=== PATIENT | female | born 1995 | race Caucasian/White ===

== ENCOUNTER 2024-01-07 20:30 | Emergency (ER) | payer OTHER, SELFPAY ==
[2024-01-07 20:34] VITALS: BP 140/95; PULSE 65; RESP 18; TEMP 36.6; O2SAT 100; BMI 23.1
[2024-01-07 20:35] VITALS: BP 140/95
[2024-01-07 20:36] VITALS: O2SAT 100
--- NOTE | 2024-01-07 20:39 | ED.NAVMDI1 ---
HPI - Nausea/Vomiting/Diarrhea General Chief complaint: Nausea/Vomiting/Diarrhea Stated complaint: Nausea Vomiting Time Seen by Provider: 01/07/24 20:34 Source: patient Mode of arrival: walk-in History of Present Illness HPI Narrative: history of GERD. vomiting and diarrhea last PM and increased GERD symptoms. Took Mylanta and it did not help as it usually does. Today continues with vomiting and diarrhea. also has pain left apex of her chest and epigastric area. no hematemesis. States home preg test 3 days ago was neg. No fever or dyspnea. Is currently nauseated Related Data Home Medications Medication Instructions Recorded Confirmed omeprazole 40 mg capsule,delayed 40 mg PO DAILY 01/07/24 01/07/24 release prazosin 1 mg capsule 1 mg PO DAILY 01/07/24 01/07/24 quetiapine 100 mg tablet 100 mg PO DAILY 01/07/24 01/07/24 sotalol 80 mg tablet 80 mg PO DAILY 01/07/24 01/07/24 Allergies Allergy/AdvReac Type Severity Reaction Status Date / Time aspirin Allergy Severe Verified 01/07/24 20:38 Sulfa (Sulfonamide Allergy Severe Verified 01/07/24 20:38 Antibiotics) Review of Systems ROS Status of ROS 10 or more systems reviewed and unremarkable except as noted in history and below [facility] Medical History (Updated 01/08/24 @ 00:48 by Eyad Silva MD) 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 - Other bipolar disorder (ICD-10) SVT (supraventricular tachycardia) ?I47.10 - Supraventricular tachycardia, unspecified (ICD-10) Gilbert syndrome ?E80.4 - Gilbert syndrome (ICD-10) Exam Constitutional Vital Signs, click to edit/add: Last Vital Signs Temp 97.9 F 01/07/24 20:34 Pulse 53 L 01/07/24 20:42 Resp 13 01/07/24 20:42 BP 113/71 01/07/24 22:18 Pulse Ox 100 01/07/24 20:36 O2 Del Method Room Air 01/07/24 20:34 Common normals: no apparent distress, average body habitus, oriented x3, no limitations, healthy appearing, alert and well nourished [facility] Common normals: normocephalic and head/scalp atraumatic Eye Common normals: PERRL, EOMs intact bilaterally, conjunctivae normal and no scleral icterus Chest Other: left chest wall tenderness reproduces symptoms Respiratory Common normals: normal respiratory effort, no retractions, no use of accessory muscles and clear to auscultation bilaterally GI Common normals: Normal to inspection, nondistended, normoactive bowel sounds present and soft to palpation Other: mod epigastric tenderness Extremity Common normals: normal to inspection and full ROM Neuro Common normals: oriented x3, CN's II-XII intact bilaterally, moves all extremities and no focal motor deficits Psych Appearance: grossly normal Course Vital Signs Vital signs: Vital Signs Temperature 97.9 F 01/07/24 20:34 Pulse Rate 65 01/07/24 20:34 Respiratory Rate 18 01/07/24 20:34 Blood Pressure 140/95 H 01/07/24 20:34 Pulse Oximetry 100 01/07/24 20:34 Oxygen Delivery Method Room Air 01/07/24 20:34 Temperature 97.9 F 01/07/24 20:34 Pulse Rate 53 L 01/07/24 20:42 Respiratory Rate 13 01/07/24 20:42 Blood Pressure 113/71 01/07/24 22:18 Pulse Oximetry 100 01/07/24 20:36 Oxygen Delivery Method Room Air 01/07/24 20:34 MDM - Nausea/Vomiting/Diarrhea MDM Narrative Medical decision making narrative: patient presents with presentation of viral gastroenteritis manifested by recurrent vomiting and diarrhea. Tonight increased epigastric pain. Known history of GERD. On exam she is found to have epigastric tenderness without guarding. Her symptoms resolved with GI cocktail and phenergan. She has history of Gilbert's syndrome. Labs with mildly elevated T. bili but also mild elevated alk phos and LFTs. CT with findings of prior cholecystectomy and new mild extrahepatic bile dilatation. bile duct dilatation could be related to past cholecystectomy . Patient re examined and remains pain free. Patient discharged and informed of the findings. also informed that is symptoms recur she may need ERCP or MRCP. 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 States she will follow up with her GI doctor. Discharged home with a prescription for phenergan Lab Data Labs: Lab Results 01/07/24 01/07/24 Range/Units 20:45 21:18 WBC 12.5 H (4.0-11.0) 10^3/uL RBC 5.20 (4.20-5.40) 10^6/uL Hgb 14.9 (12.0-16.0) g/dL Hct 45.3 (36.0-48.0) % MCV 87.1 (81.0-99.0) fL MCH 28.7 (26.7-34.0) pg MCHC 32.9 (29.9-35.2) g/dL RDW 12.5 (11.0-15.0) % Plt Count 475 H (150-450) 10^3/uL MPV 9.8 (9.5-13.5) fL Neut % (Auto) 50.6 (43.0-75.0) % Lymph % (Auto) 39.2 (20.5-60.0) % [place] % (Auto) 8.0 (1.7-12.0) % Eos % (Auto) 1.1 (0.9-7.0) % Baso % (Auto) 0.8 (0.2-2.0) % Neut # (Auto) 6.3 (1.4-6.5) 10^3/uL Lymph # (Auto) 4.9 H (1.2-3.8) 10^3/uL [place] # (Auto) 1.0 H (0.3-0.8) 10^3/uL Eos # (Auto) 0.1 (0.0-0.7) 10^3/uL Baso # (Auto) 0.1 (0.0-0.1) 10^3/uL Abs Immat Gran (auto) 0.04 H (0.00-0.03) 10^3/uL Imm/Tot Granulo (auto) 0.3 (0.0-0.5) % Sodium 142 (136-145) mmol/L Potassium 3.9 (3.5-5.1) mmol/L Chloride 107 (98-107) mmol/L Carbon Dioxide 24.0 (21.0-32.0) mmol/L Anion Gap 14.9 BUN 8.0 (7.0-18.0) mg/dL Creatinine 0.91 (0.55-1.02) mg/dL Est GFR ( Amer) >60 (>=60) Est GFR (Non-Af Amer) >60 (>=60) BUN/Creatinine Ratio 8.8 Glucose 100 (74-106) mg/dL Lactate 1.4 (0.4-2.0) mmol/L Calcium 9.1 (8.5-10.1) mg/dL Total Bilirubin 1.7 H (0.2-1.0) mg/dL AST 142 H (15-37) U/L ALT 134 H (14-59) U/L Alkaline Phosphatase 155 H (46-116) U/L Troponin I High Sens 43.7 (4.0-51.3) pg/mL Total Protein 8.1 (6.4-8.2) g/dL Albumin 3.6 (3.4-5.0) g/dL Globulin 4.5 g/dL Albumin/Globulin Ratio 0.8 Lipase 25.0 (16.0-77.0) U/L Urine Color Lt. yellow (YELLOW) Urine Clarity Clear (CLEAR) Urine pH >=9.0 A (5.0-9.0) Ur Specific [place] 1.015 (1.005-1.025) Urine Protein Negative (NEG/TRACE) mg/dL Urine Glucose (UA) Negative (NEGATIVE) mg/dL Urine Ketones Negative (NEGATIVE) mg/dL Urine Occult Blood Small A (NEGATIVE) Urine Nitrite Negative (NEGATIVE) Urine Bilirubin Negative (NEGATIVE) Urine Urobilinogen 0.2 (0.2-1.0) EU/dL Ur Leukocyte Esterase Small A (NEGATIVE) Urine RBC 2-5 A (0-2) #/HPF Urine WBC 2-5 A (NONE SEEN) #/HPF Ur Squamous Epith Cells Few A (NONE/RARE) #/LPF Urine Crystals None seen (None Seen) #/HPF Urine Bacteria Trace A (NONE SEEN) #/HPF Urine Casts None seen (NONE SEEN) #/LPF Urine Mucus Trace A (NONE SEEN) Urine HCG, Qual Negative (NEGATIVE) Imaging Data Chest x-ray: Radiologist's impression: ITS Impressions Abdomen/Pelvis CT 01/07/24 22:41 IMPRESSION: 1. Prior cholecystectomy again noted with new mild extrahepatic biliary ductal dilatation. This may be due to remote cholecystectomy. If clinical or laboratory findings suggest biliary obstruction, further evaluation with MRCP or ERCP could be considered. 2. No acute findings in the abdomen or pelvis to explain epigastric pain. 3. Nonspecific mild focal dilatation of the left common iliac vein just distal to the right common iliac artery. May-Thurner syndrome cannot be excluded. Clinical correlation recommended. No associated deep venous thrombosis is seen. Electronically authenticated by: RASHIDA MANJARREZ Date: 01/07/2024 23:53 Discharge Plan Discharge Chief Complaint: Nausea/Vomiting/Diarrhea Clinical Impression: Gastroenteritis, GERD (gastroesophageal reflux disease) Patient Disposition: Home, Self-Care Prescriptions / Home Meds: No Action omeprazole 40 mg capsule,delayed release(DR/EC) 40 mg PO DAILY prazosin 1 mg capsule 1 mg PO DAILY sotalol 80 mg tablet 80 mg PO DAILY quetiapine 100 mg tablet 100 mg PO DAILY Instructions: Gastroenteritis (ED), GERD (Gastroesophageal Reflux Disease) (ED) Additional Instructions: follow up with your doctor in a couple of days for recheck Stand Alone Forms: Portal Instructions Referrals: Physician,Non-Staff, MD [Physician] - 1 week
[2024-01-07 20:40] VITALS: PULSE 70; RESP 6
--- NOTE | 2024-01-07 20:41 | ECG_ITS ---
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
[2024-01-07 20:42] VITALS: PULSE 53; RESP 13
[2024-01-07 20:58] LABS: Basophils Absolute Auto 0.1 10^3/uL (0.0-0.1); Basophils Percent Auto 0.8 % (0.2-2.0); Eosinophils Absolute Auto 0.1 10^3/uL (0.0-0.7); Eosinophils Percent Auto 1.1 % (0.9-7.0); Hematocrit 45.3 % (36.0-48.0); Hemoglobin 14.9 g/dL (12.0-16.0); Immature Granulocytes Abs Auto 0.04 10^3/uL (0.00-0.03); Immature Granulocytes Pct Auto 0.3 % (0.0-0.5); Lymphocytes Absolute Auto 4.9 10^3/uL (1.2-3.8); Lymphocytes Percent Auto 39.2 % (20.5-60.0); Mean Corpuscular HGB Conc 32.9 g/dL (29.9-35.2); Mean Corpuscular Hemoglobin 28.7 pg (26.7-34.0); Mean Corpuscular Volume 87.1 fL (81.0-99.0); Mean Platelet Volume 9.8 fL (9.5-13.5); Neutrophils Absolute Auto 6.3 10^3/uL (1.4-6.5); Neutrophils Percent Auto 50.6 % (43.0-75.0); Platelet Count 475 10^3/uL (150-450); Red Cell Distribution Width 12.5 % (11.0-15.0); White Blood Count 12.5 10^3/uL (4.0-11.0)
[2024-01-07] MEDS: 0.9 % SODIUM CHLORIDE 1,000 ML 999 ML IV ×2 (21:08)
[2024-01-07] MEDS: PROMETHAZINE HCL 12.5 MG in 0.9 % SODIUM CHLORIDE 50 ML 204 MG IV (21:08)
[2024-01-07] MEDS: PANTOPRAZOLE SODIUM 40 MG VIAL IV (21:08)
[2024-01-07 21:15] LABS: Lactate/Lactic Acid 1.4 mmol/L (0.4-2.0)
[2024-01-07 21:21] LABS: Troponin I High Sensitivity 43.7 pg/mL (4.0-51.3)
[2024-01-07 21:22] LABS: Alanine Aminotransferase 134 U/L (14-59); Albumin Globulin Ratio 0.8; Albumin Level 3.6 g/dL (3.4-5.0); Alkaline Phosphatase 155 U/L (46-116); Anion Gap 14.9; Aspartate Amino Transferase 142 U/L (15-37); BUN Creatinine Ratio 8.8; Bilirubin Total 1.7 mg/dL (0.2-1.0); Calcium 9.1 mg/dL (8.5-10.1); Chloride 107 mmol/L (98-107); Estimated GFR (African America >60 (>=60); Estimated GFR (Non-African Ame >60 (>=60); Globulin 4.5 g/dL; Glucose 100 mg/dL (74-106); Potassium 3.9 mmol/L (3.5-5.1); Sodium 142 mmol/L (136-145); Total Protein 8.1 g/dL (6.4-8.2)
[2024-01-07 21:32] LABS: Bilirubin Urine NEGATIVE (NEGATIVE); Blood Urine SMALL (NEGATIVE); Clarity Urine CLEAR (CLEAR); Color Urine LT. YELLOW (YELLOW); Glucose Urine UA NEGATIVE (NEGATIVE); Ketones Urine NEGATIVE (NEGATIVE); Leukocyte Esterase Urine SMALL (NEGATIVE); Nitrite Urine NEGATIVE (NEGATIVE); Protein Urine NEGATIVE (NEG/TRACE); Specific Gravity Urine 1.015 (1.005-1.025); Urobilinogen Urine 0.2 EU/dL (0.2-1.0); pH Urine >=9.0 (5.0-9.0)
[2024-01-07 21:34] LABS: Urine Microscopic Indicated YES
[2024-01-07 21:35] LABS: HCG Qualitative Urine* NEGATIVE (NEGATIVE)
[2024-01-07] MEDS: lidocaine HCL 15 ML, MAG HYDROX/ALUMINUM HYD/SIMETH 30 ML, HYOSCYAMINE SULFATE 0.25 MG PO (21:53)
[2024-01-07 22:04] LABS: Bacteria Urine TRACE #/HPF (NONE SEEN); Crystals Seen? None Seen #/HPF (None Seen); Mucus Urine TRACE (NONE SEEN); Squamous Epithelial Cell Urine FEW #/LPF (NONE/RARE)
[2024-01-07 22:05] LABS: Cast Seen? NONE SEEN #/LPF (NONE SEEN)
[2024-01-07 22:18] VITALS: BP 113/71
--- NOTE | 2024-01-07 22:41 | CT_ITS ---
The [address] [address] Patient Name: MATHEUS LAW MRN: [id number] date: 1995 Sex: F Assigned Patient Location: ER Current Patient Location: ER Accession/Order Number: [id number] Exam Date: 01/07/2024 22:57 Report Date: 01/07/2024 23:53 At the request of: TATIANNA HINTON Procedure: CT abdomen pelvis w con EXAM: CT abdomen pelvis w con HISTORY: epigastric pain COMPARISON: CT abdomen pelvis, 08/02/2016. TECHNIQUE: IV contrast enhanced CT imaging the abdomen and pelvis was performed using 100 mL of Omnipaque 300 intravenous contrast. Sagittal and coronal reconstructions are provided. Dose reduction techniques were achieved by using automated exposure control and/or adjustment of mA and/or kV according to patient size and/or use of iterative reconstruction technique. FINDINGS: CT ABDOMEN: The lung bases are clear. The imaged heart is unremarkable. Prior cholecystectomy is again noted with new dilatation of the common bile duct measuring 12 mm on image 36 of series 3. The liver, pancreas, spleen, adrenal glands, kidneys, aorta, IVC, stomach and small bowel appear unremarkable. CT PELVIS: There is short segment narrowing of the proximal left common iliac vein posterior to the proximal right common iliac artery, with focal dilatation of the left iliac vein just distal to this level, measuring 1.7 cm on image 77 of series 3. May-Thurner syndrome cannot be excluded. There is no associated deep venous thrombosis. A normal appendix is seen on images 92-1 02. The pelvic small bowel loops, colon, urinary bladder, uterus and ovaries are unremarkable. No inflammatory fat stranding, free fluid, loculated fluid or free air is seen in the abdomen or pelvis. No acute osseous abnormality or suspicious bony lesion is seen. CT/CT abdomen pelvis w con IMPRESSION: 1. Prior cholecystectomy again noted with new mild extrahepatic biliary ductal dilatation. This may be due to remote cholecystectomy. If clinical or laboratory findings suggest biliary obstruction, further evaluation with MRCP or ERCP could be considered. 2. No acute findings in the abdomen or pelvis to explain epigastric pain. 3. Nonspecific mild focal dilatation of the left common iliac vein just distal to the right common iliac artery. May-Thurner syndrome cannot be excluded. Clinical correlation recommended. No associated deep venous thrombosis is seen. Electronically authenticated by: RASHIDA MANJARREZ Date: 01/07/2024 23:53
[2024-01-08] MEDS: PROMETHAZINE HCL 12.5 MG in 0.9 % SODIUM CHLORIDE 50 ML 204 MG IV (01:03)
[2024-01-08 01:28] VITALS: BP 121/74; PULSE 65; RESP 16; O2SAT 99
== END 2024-01-08 01:30 | disposition home or self-care (01) ==
PROVIDERS: Emergency Provider Internal Medicine; PCP Family Medicine
DX: K52.9 Noninfective gastroenteritis and colitis, unspecified (principal); K21.9 Gastro-esophageal reflux disease without esophagitis; F31.89 Other bipolar disorder; E80.4 Gilbert syndrome; I47.10 Supraventricular tachycardia, unspecified; Z90.49 Acquired absence of other specified parts of digestive tract
CPT/HCPCS: 36415; 74177; 80053; 81001; 83605; 83690; 84484; 84703; 85025; 93005; 96361; 96365; 96375; 99285; J2250; Q9967

== ENCOUNTER 2024-08-05 13:31 | Emergency (ER) | payer OTHER, SELFPAY ==
[2024-08-05 13:36] VITALS: BP 118/78; PULSE 77; TEMP 36.6; O2SAT 100; BMI 22.5
--- NOTE | 2024-08-05 13:40 | XR_ITS ---
The [address] [address] Patient Name: MATHEUS LAW MRN: [id number] date: 1995 Sex: F Assigned Patient Location: ER Current Patient Location: ER Accession/Order Number: [id number] Exam Date: 08/05/2024 13:45 Report Date: 08/05/2024 14:15 At the request of: BRIT MCKEON Procedure: XR ankle RT min 3V PROCEDURE: XR ankle RT min 3V COMPARISON: None. HISTORY: Injury FINDINGS: BONES:No fracture, acute abnormality, or significant arthropathy. SOFT TISSUES:Negative. No visible soft tissue swelling. EFFUSION:None visible. OTHER: Negative. XR/XR ankle RT min 3V IMPRESSION: No acute radiographic abnormality Electronically authenticated by: ALESSANDRO RUBIN Date: 08/05/2024 14:15
--- NOTE | 2024-08-05 13:40 | ED.GENADUL1 ---
HPI HPI - General Adult General Chief complaint: Extremity Injury, Lower Stated complaint: LOWER EXTREMITY INJURY Time Seen by Provider: 08/05/24 13:35 Source: patient Mode of arrival: Wheelchair Limitations: no limitations History of Present Illness HPI narrative: Patient is a 29-year-old female who arrives to the emergency department for evaluation of right ankle pain after an injury at home. She states she misjudged a step in her home and twisted her right ankle by inverting. She is 27 weeks . She denies any other associated falls or injuries. She has no pain to the right lower leg or knee. No medications taken prior to arrival. She is able to ambulate but reports difficulty doing so. Related Data Home Medications ?Medication ?Instructions ?Recorded ?Confirmed omeprazole 40 mg capsule,delayed 40 mg PO DAILY 01/07/24 01/07/24 release prazosin 1 mg capsule 1 mg PO DAILY 01/07/24 01/07/24 quetiapine 100 mg tablet 100 mg PO DAILY 01/07/24 01/07/24 sotalol 80 mg tablet 80 mg PO DAILY 01/07/24 01/07/24 Allergies Allergy/AdvReac Type Severity Reaction Status Date / Time aspirin Allergy Severe Hives Verified 08/05/24 13:36 Sulfa (Sulfonamide AdvReac Severe Vomiting Verified 08/05/24 13:36 Antibiotics) Opioid HPI Opioid Management Most Recent Opioid Data: No Data to Display Review of Systems ROS Constitutional Denies: fever or chills Ears, nose, mouth, and throat Denies: throat pain or nasal congestion Respiratory Denies: shortness of breath Gastrointestinal Denies: nausea or vomiting Genitourinary Denies: pelvic pain Hematologic/Lymphatic Denies: easy bruising or easy bleeding PFSH PFS Medical History (Updated 08/05/24 @ 14:25 by VANNESA Marrero) 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 No significant swelling. 2+ right DP pulse. No bony tenderness of the right fifth metatarsal. Normal flexion and extension of the toes of the right foot. Psych: Normal mood and affect Neuro: No focal neuro deficit Skin: Warm, dry, intact Constitutional Vital Signs, click to edit/add: Last Vital Signs Temp 97.9 F 08/05/24 13:36 Pulse 77 08/05/24 13:36 Resp 16 08/05/24 13:36 BP 118/78 08/05/24 13:36 Pulse Ox 100 08/05/24 13:36 O2 Del Method Room Air 08/05/24 13:36 Course Vital Signs Vital signs: Vital Signs Temperature 97.9 F 08/05/24 13:36 Pulse Rate 77 08/05/24 13:36 Respiratory Rate 16 08/05/24 13:36 Blood Pressure 118/78 08/05/24 13:36 Pulse Oximetry 100 08/05/24 13:36 Oxygen Delivery Method Room Air 08/05/24 13:36 Temperature 97.9 F 08/05/24 13:36 Pulse Rate 77 08/05/24 13:36 Respiratory Rate 16 08/05/24 13:36 Blood Pressure 118/78 08/05/24 13:36 Pulse Oximetry 100 08/05/24 13:36 Oxygen Delivery Method Room Air 08/05/24 13:36 Medical Decision Making MDM Narrative Medical decision making narrative: X-rays with no evidence of acute process. Patient placed in an Kai wrap and Aircast. She has crutches at home. She is neurovascularly intact pre and post hardware application. Patient declined Tylenol. Ice was applied in the ER. She is encouraged to rest, ice, elevate and use Tylenol as needed. Return to the ER if symptoms change or worsen. SUPERVISED APC VISIT, PHYSICIAN ATTESTATION: Based on the medical record the care appears appropriate. ? Medical Records Medical records reviewed: Yes I reviewed the patient's medical records Imaging Data xr ankle: Attestation: I have reviewed the pertinent imaging results. Radiologist's impression: ITS Impressions Ankle X-Ray 08/05/24 13:40 IMPRESSION: No acute radiographic abnormality Electronically authenticated by: ALESSANDRO RUBIN Date: 08/05/2024 14:15 Discharge Plan Discharge Chief Complaint: Extremity Injury, Lower Clinical Impression: Right ankle sprain Patient Disposition: Home, Self-Care Time of Disposition Decision: 14:25 Condition: Good Prescriptions / Home Meds: No Action omeprazole 40 mg capsule,delayed release(DR/EC) 40 mg PO DAILY prazosin 1 mg capsule 1 mg PO DAILY sotalol 80 mg tablet 80 mg PO DAILY quetiapine 100 mg tablet 100 mg PO DAILY Print Language: Frisian Instructions: Ankle Sprain (ED) Referrals: MANDI ROY [Primary Care Provider] - 1 week Discharge Date/Time: 08/05/24 14:55
== END 2024-08-05 14:55 | disposition home or self-care (01) ==
PROVIDERS: Emergency Provider Emergency Medicine; PCP Family Medicine
DX: O9A.212 Injury, poisoning and certain other consequences of external causes complicating pregnancy, second trimester (principal); S93.401A Sprain of unspecified ligament of right ankle, initial encounter; Z3A.27 27 weeks gestation of pregnancy; X50.1XXA Overexertion from prolonged static or awkward postures, initial encounter
CPT/HCPCS: 73610; 99283

== ENCOUNTER 2024-08-20 09:02 | Outpatient (OUT) | payer OTHER, SELFPAY ==
[2024-08-20 10:30] LABS: Hematocrit 35.8 % (36.0-48.0); Hemoglobin 11.8 g/dL (12.0-16.0)
[2024-08-20 10:45] LABS: Glucose 1 Hour 119 mg/dL (<130)
== END 2024-08-20 09:03 | disposition home or self-care (01) ==
LOC: LAB 09:03
PROVIDERS: PCP Family Medicine; Visit Provider Obstetrics & Gynecology
DX: Z13.1 Encounter for screening for diabetes mellitus (principal)
CPT/HCPCS: 36415; 82950; 83036; 85014; 85018

== ENCOUNTER 2024-11-07 09:11 | Outpatient (OUT) | payer OTHER, SELFPAY ==
--- NOTE | 2024-11-07 12:46 | PC.NURSE ---
Shayna here for support. Baby Sandra is 18 days old and not latching. Was offered bottle of formula when would not latch while in the hospital and became increasingly harder to latch. Mom pumping well and has good supply. When Shayna brings baby to breast, is difficult and awkward. Shown good positioning and hand placement to encourage infant to latch and Sandra is more interested in latching. Shallow latch as mom only wants to offer tip of short nipple, again demo of deep asymmetrical latch and baby nurses 20 / 15 well. Mom will practice positioning and holding breast. Will return 11/11/2024 for further support.
== END 2024-11-07 12:55 | disposition home or self-care (01) ==
LOC: FBCO 09:12
PROVIDERS: PCP Family Medicine; Visit Provider Obstetrics & Gynecology
DX: Z39.1 Encounter for care and examination of lactating mother (principal)

== ENCOUNTER 2024-11-11 09:52 | Outpatient (OUT) | payer OTHER, SELFPAY | END 2024-11-11 10:08 | disposition home or self-care (01) | LOC: FBCO 09:52 | PROVIDERS: PCP Family Medicine; Visit Provider Obstetrics & Gynecology | DX: Z39.1 Encounter for care and examination of lactating mother (principal) ==